=== PATIENT | male | born 1990 | race Caucasian/White ===

== ENCOUNTER 2021-08-30 17:30 | Emergency (ER) | payer SELFPAY ==
[~2021-08-30] VITALS: Ht 190.5 cm; Wt 80.0 kg
[2021-08-30 17:34] VITALS: BP 159/90
[2021-08-30] MEDS ORDERED: LISI2.5T47 PO (17:38)
== END 2021-08-30 21:00 | disposition left against medical advice (07) ==
LOC: ER 17:30
DX: F10.20 Alcohol dependence, uncomplicated (principal); I10 Essential (primary) hypertension; Y90.9 Presence of alcohol in blood, level not specified
CPT/HCPCS: 99283